=== PATIENT | male | born 1990 | race Caucasian/White ===

== ENCOUNTER 2023-12-27 23:28 | Emergency (ER) | payer SELFPAY ==
[2023-12-27 23:35] VITALS: BP 123/69; PULSE 78; RESP 16; TEMP 97.8; BMI 34.7
[2023-12-28 02:09] LABS: URINE APPEARANCE CLEAR; URINE BILIRUBIN NEGATIVE (NEGATIVE); URINE COLOR YELLOW; URINE GLUCOSE (UA) NEGATIVE (NEGATIVE); URINE KETONE TRACE (NEGATIVE); URINE LEUK ESTERASE NEGATIVE (NEGATIVE); URINE NITRITE NEGATIVE (NEGATIVE); URINE PROTEIN NEGATIVE (NEGATIVE)
[2023-12-28] MEDS: NYSTATIN 100,000 UNIT/GM TOPICAL CREAM 15 GM TUBE TP ONE (02:09)
[2023-12-28 03:08] LABS: SYPHILIS W/ RPR CONF NON-REACTIVE (NONREACTIVE)
[2023-12-28 03:27] LABS: HIV INTERPRETATION NEGATIVE (NEGATIVE)
== END 2023-12-28 03:16 | disposition home or self-care (01) ==
LOC: JER 23:28
DX: L29.3 Anogenital pruritus, unspecified (principal); B35.6 Tinea cruris
CPT/HCPCS: 36415; 81003; 86780; 87389; 87491; 87591; 87661; 99283-25